=== PATIENT | male | born 1990 | race American Indian/Alaskan Native ===

== ENCOUNTER 2017-07-02 21:05 | Emergency (ER) | payer SELFPAY ==
[2017-07-02 23:03] LABS: Hematocrit 47.6 % (35.5-45.6); Hemoglobin 16.2 gm/dl (11.8-15.2); Mean Corpuscular HGB Conc 34 % (32-34); Mean Corpuscular Hemoglobin 31 pg (28-32); Mean Corpuscular Volume 90 fl (84-94); Platelet Count 205 K/mm3 (140-440); Red Blood Count 5.31 M/mm3 (3.65-5.03); Red Cell Distribution Width 13.1 % (13.2-15.2); White Blood Count 7.6 K/mm3 (4.5-11.0)
[2017-07-02 23:17] LABS: Anion Gap 18 mmol/L; Blood Urea Nitrogen 14 mg/dL (9-20); Calcium 9.5 mg/dL (8.4-10.2); Carbon Dioxide 26 mmol/L (22-30); Chloride 97.2 mmol/L (98-107); Glucose 144 mg/dL (75-100); Potassium 4.3 mmol/L (3.6-5.0); Sodium 137 mmol/L (137-145)
[2017-07-02 23:58] LABS: Anisocytosis RARE; Blastocytes % (Manual) 0 %; Diff Status Complete; Platelet Estimate Consistent w Auto
[2017-07-03 11:03] LABS: Bilirubin,Urine NEG (Negative); Blood,Urine NEG (Negative); Ketones,Urine NEG (Negative); Leukocyte Esterase,Urine NEG (Negative); Mucus,Urine FEW /HPF; Nitrite,Urine NEG (Negative); Protein,Urine <15 mg/dL mg/dL (Negative); Urobilinogen,Urine < 2.0 mg/dL (<2.0); WBC,Urine < 1.0 /HPF (0.0-6.0)
[2017-07-03 11:09] VITALS: BP 149/92
--- NOTE | 2017-07-03 11:14 | Emergency Department Report ---
ED General Adult HPI - General Chief complaint: High BP Stated complaint: MEDICAL CLEARANCE Time Seen by Provider: 07/03/17 10:31 Source: patient Mode of arrival: Ambulatory Limitations: No Limitations - History of Present Illness Initial comments: 27-year-old male past medical history type 2 diabetes, hypertension presents with complaint of slightly elevated blood pressure. Patient states he does not currently have primary medical doctor and had medical screening at workplace which found his blood pressure to be in the 150s range systolic. Patient stated that his workplace medical representatives deferred him to the ED for hypertension evaluation. Patient states that he also needs a primary doctor referral and is nearly out of his metformin and losartan. Patient is awake alert and oriented 3 not in acute distress, denies chest pain shortness of breath palpitations nausea vomiting abdominal pain upper or lower extremity paresthesias. Denies dizziness or headache. States he has been taking his medicines consistently after being diagnosed with diabetes and hypertension approximately 4 months ago. Onset/Timin -: days(s) Severity scale (0 -10): 0 - Related Data Previous Rx's Medication Instructions Recorded Last Taken Type Losartan [Cozaar] 50 mg PO QDAY #30 tablet 07/03/17 Unknown Rx metFORMIN [Glucophage] 500 mg PO BID #60 tablet 07/03/17 Unknown Rx Allergies Allergy/AdvReac Type Severity Reaction Status Date / Time No Known Allergies Allergy Unverified 07/02/17 22:30 ED Review of Systems ROS: Stated complaint: MEDICAL CLEARANCE Other details as noted in HPI Constitutional: denies: chills, fever Eyes: denies: eye pain, eye discharge, vision change ENT: denies: ear pain, throat pain Respiratory: denies: cough, shortness of breath, wheezing Cardiovascular: denies: chest pain, palpitations Endocrine: no symptoms reported Gastrointestinal: denies: abdominal pain, nausea, diarrhea Genitourinary: denies: urgency, dysuria Musculoskeletal: denies: back pain, joint swelling, arthralgia Skin: denies: rash, lesions Neurological: denies: headache, weakness, paresthesias Psychiatric: denies: anxiety, depression Hematological/Lymphatic: denies: easy bleeding, easy bruising ED Past Medical Hx - Past Medical History Hx Hypertension: Yes Hx Diabetes: Yes - Surgical History Past Surgical History?: Yes Additional Surgical History: Right knee. left shoulder - Social History Smoking Status: Never Smoker Substance Use Type: None - Medications Home Medications: Home Medications Medication Instructions Recorded Confirmed Last Taken Type Losartan [Cozaar] 50 mg PO QDAY #30 tablet 07/03/17 Unknown Rx metFORMIN [Glucophage] 500 mg PO BID #60 tablet 07/03/17 Unknown Rx ED Physical Exam - General Limitations: No Limitations General appearance: alert, in no apparent distress - Head Head exam: Present: atraumatic, normocephalic - Eye Eye exam: Present: normal appearance, PERRL, EOMI - ENT ENT exam: Present: mucous membranes moist - Neck Neck exam: Present: normal inspection - Respiratory Respiratory exam: Present: normal lung sounds bilaterally. Absent: respiratory distress - Cardiovascular Cardiovascular Exam: Present: regular rate, normal rhythm. Absent: systolic murmur, diastolic murmur, rubs, gallop - GI/Abdominal GI/Abdominal exam: Present: soft, normal bowel sounds - Rectal Rectal exam: Present: deferred - Extremities Exam Extremities exam: Present: normal inspection - Back Exam Back exam: Present: normal inspection - Neurological Exam Neurological exam: Present: alert, oriented X3 - Psychiatric Psychiatric exam: Present: normal affect, normal mood - Skin Skin exam: Present: warm, dry, intact, normal color. Absent: rash ED Course Vital Signs 07/02/17 07/03/17 22:24 10:20 Temperature 98.4 F Pulse Rate 82 81 Respiratory 16 18 Rate Blood Pressure 146/99 153/95 [Right] O2 Sat by Pulse 100 98 Oximetry ED Medical Decision Making - Lab Data Result diagrams: 07/02/17 22:38 07/02/17 22:38 - Medical Decision Making A/P: Asymptomatic hypertension 1-patient has no chest pain palpitations shortness of breath dizziness headache nausea or abdominal pain up her alert memory paresthesias. Clinically has asymptomatic hypertension. I advised patient to decrease the salt in his diet and to follow up with his primary care doctor. Patient states he does not have primary care doctor so I will refer him to some primary care centers. Patient also requesting refill on his losartan and metformin until he sees a primary care doctor. Patient agreed to follow-up within 1-2 weeks based on the referrals are given. 2-blood pressure slightly elevated but patient is asymptomatic 3-finger stick glucose unremarkable, EKG unremarkable, labs unremarkable Critical care attestation.: If time is entered above; I have spent that time in minutes in the direct care of this critically ill patient, excluding procedure time. ED Disposition Clinical Impression: Asymptomatic hypertension Hypertension Qualifiers: Hypertension type: unspecified Qualified Code(s): I10 - Essential (primary) hypertension Disposition: TO HOME OR SELFCARE Is pt being admited?: No Does the pt Need Aspirin: No Condition: Stable Instructions: Hypertension (ED), Low Sodium Diet (ED) Prescriptions: Losartan [Cozaar] 50 mg PO QDAY #30 tablet metFORMIN [Glucophage] 500 mg PO BID #60 tablet Referrals: [facility] [Outside] - 3-5 Days [facility] [Outside] - 3-5 Days Forms: Work/School Release Form(ED) Time of Disposition: 11:09
[2017-07-03] MEDS ORDERED: TYLENOL PO ONE (11:24)
== END 2017-07-03 11:22 | disposition home or self-care (01) ==
LOC: ED 21:05
DX: I10 Essential (primary) hypertension (principal); E11.9 Type 2 diabetes mellitus without complications
CPT/HCPCS: 36415; 80048; 81001; 82962; 84484; 85007; 85025; 93005; 93010; 99284

== ENCOUNTER 2018-06-06 09:56 | Emergency (ER) | payer MEDICAID ==
[2018-06-06 10:29] VITALS: BP 139/91
== END 2018-06-06 14:51 | disposition left against medical advice (07) ==
LOC: ED 09:56
DX: I10 Essential (primary) hypertension (principal); E11.9 Type 2 diabetes mellitus without complications; Z53.21 Procedure and treatment not carried out due to patient leaving prior to being seen by health care provider
CPT/HCPCS: 82962